=== PATIENT | female | born 1995 | race Caucasian/White ===

== ENCOUNTER 2017-03-19 20:33 | Emergency (ER) | payer SELFPAY ==
[~2017-03-19] VITALS: Ht 170.2 cm; Wt 72.6 kg
--- NOTE | 2017-03-19 22:10 | PHYS DOC ---
Past Medical History Past Medical History: No Pertinent History Past Surgical History: No Surgical History Alcohol Use: None Drug Use: None Adult General Chief Complaint Chief Complaint: NAUSEA/VOMITING/DIARRHA HPI HPI Patient is a 21 year old F who presents with nausea/vomiting/diarrhea. Patient states that around 5 PM this evening she started having diffuse abdominal tenderness with persistent nausea and vomiting. Patient states she can keep anything down. Patient developed diarrheas night progressed. Patient denies any fevers. Mom brought her in because she was looking weak and miserable. Patient had no previous abdominal surgeries. She denies . Patient no other complaints. Review of Systems Review of Systems GEN: Denies fevers, chills, sweats HEENT: Denies blurred vision, sore throat CV: Denies chest pain RESP: Denies shortness of air, cough GI: n/v/d diffuse abdominal tenderness NEURO: Denies confusion, dizziness MSK: Denies weakness, joint pain/swelling Current Medications Current Medications Current Medications Medications (Trade) Dose Ordered Sig/Gail Start Time Stop Time Status Last Admin Dose Admin Info (Do NOT chart on this entry -- for MONITORING) 1 each PRN DAILY PRN 03/19/17 23:00 03/21/17 22:59 Iohexol (Omnipaque 300 Mg/ml) 75 ml 1X ONCE 03/19/17 23:00 03/19/17 23:01 DC 03/19/17 23:52 75 ML Ondansetron HCl (Zofran) 4 mg 1X ONCE 03/19/17 22:45 03/19/17 22:47 DC 03/19/17 22:54 4 MG Potassium Chloride (Klor-Con) 40 meq 1X ONCE 03/20/17 01:00 03/20/17 01:01 DC 03/20/17 01:00 40 MEQ Sodium Chloride 1,000 ml @ 1,000 mls/hr 1X ONCE 03/20/17 01:00 03/20/17 01:59 03/20/17 01:00 1,000 MLS/HR Allergies Allergies Allergies Coded Allergies Type Severity Reaction Last Updated Verified No Known Drug Allergies 03/19/17 No Physical Exam Physical Exam GEN.: mild distress. Alert and oriented. HEENT: Head is normocephalic, atraumatic NECK: Supple. LUNGS: CTAB. HEART: RRR, S1, S2 present. Peripheral pulses intact ABDOMEN: Soft, diffuse abdominal tenderness, no rebound tenderness, no abdominal distention. Positive bowel sounds. EXTREMITIES: Without any cyanosis. NEUROLOGIC: Normal speech, normal tone PSYCHIATRIC: Normal affect, normal mood. SKIN: No ulcerations Current Patient Data Vital Signs Vital Signs Date Time Temp Pulse Resp B/P (MAP) Pulse Ox O2 Delivery O2 Flow Rate FiO2 03/19/17 21:25 97.7 80 16 171/88 (115) 99 Room Air 97.7 Lab Values Laboratory Tests Test 03/19/17 21:00 03/19/17 21:55 03/19/17 22:00 POC Urine HCG, Qualitative Hcg negative (Negative) Sodium Level 141 mmol/L (136-145) Potassium Level 2.9 mmol/L (3.5-5.1) *L Chloride Level 104 mmol/L (98-107) Carbon Dioxide Level 20 mmol/L (21-32) L Anion Gap 17 (6-14) H Blood Urea Nitrogen 15 mg/dL (7-20) Creatinine 1.0 mg/dL (0.6-1.0) Estimated GFR (Cockcroft-Gault) 71.4 BUN/Creatinine Ratio 15 (6-20) Glucose Level 158 mg/dL (70-99) H Calcium Level 9.6 mg/dL (8.5-10.1) Total Bilirubin 0.5 mg/dL (0.2-1.0) Aspartate Amino Transferase (AST) 16 U/L (15-37) Alanine Aminotransferase (ALT) 18 U/L (14-59) Alkaline Phosphatase 57 U/L (46-116) Total Protein 7.9 g/dL (6.4-8.2) Albumin 4.1 g/dL (3.4-5.0) Albumin/Globulin Ratio 1.1 (1.0-1.7) White Blood Count 12.2 x10^3/uL (4.0-11.0) H Red Blood Count 4.66 x10^6/uL (3.50-5.40) Hemoglobin 14.4 g/dL (12.0-15.5) Hematocrit 42.7 % (36.0-47.0) Mean Corpuscular Volume 92 fL (79-100) Mean Corpuscular Hemoglobin 31 pg (25-35) Mean Corpuscular Hemoglobin Concent 34 g/dL (31-37) Red Cell Distribution Width 12.5 % (11.5-14.5) Platelet Count 234 x10^3/uL (140-400) Neutrophils (%) (Auto) 88 % (31-73) H Lymphocytes (%) (Auto) 5 % (24-48) L Monocytes (%) (Auto) 7 % (0-9) Eosinophils (%) (Auto) 0 % (0-3) Basophils (%) (Auto) 0 % (0-3) Neutrophils # (Auto) 10.8 x10^3uL (1.8-7.7) H Lymphocytes # (Auto) 0.5 x10^3/uL (1.0-4.8) L Monocytes # (Auto) 0.8 x10^3/uL (0.0-1.1) Eosinophils # (Auto) 0.0 x10^3/uL (0.0-0.7) Basophils # (Auto) 0.0 x10^3/uL (0.0-0.2) Segmented Neutrophils % 86 % (35-66) H Band Neutrophils % 5 % (0-9) Lymphocytes % 4 % (24-48) L Monocytes % 5 % (0-10) Platelet Estimate Adequate (ADEQUATE) Urine Collection Type Unknown Urine Color Yellow Urine Clarity Clear Urine pH 7.5 Urine Specific [place] 1.010 Urine Protein Negative mg/dL (NEG-TRACE) Urine Glucose (UA) Negative mg/dL (NEG) Urine Ketones (Stick) >=80 mg/dL (NEG) Urine Blood Negative (NEG) Urine Nitrite Negative (NEG) Urine Bilirubin Negative (NEG) Urine Urobilinogen Dipstick 0.2 mg/dL (0.2 mg/dL) Urine Leukocyte Esterase Negative (NEG) Urine RBC 0 /HPF (0-2) Urine WBC 1-4 /HPF (0-4) Urine Squamous Epithelial Cells Few /LPF Urine Renal Epithelial Cells Occ /LPF Urine Bacteria 0 /HPF (0-FEW) Urine Mucus Slight /LPF Urine Opiates Screen Neg (NEG) Urine Methadone Screen Neg (NEG) Urine Barbiturates Neg (NEG) Urine Phencyclidine Screen Neg (NEG) Urine Amphetamine/Methamphetamine Neg (NEG) Urine Benzodiazepines Screen Neg (NEG) Urine Cocaine Screen Neg (NEG) Urine Cannabinoids Screen Pos (NEG) Ethyl Alcohol Level < 10 mg/dL (0-10) Urine Ethyl Alcohol Neg (NEG) Laboratory Tests 03/19/17 22:00 Laboratory Tests 03/19/17 21:55 EKG EKG 0133: EKG shows normal sinus rhythm rate of 65 no STEMI[] Radiology/Procedures Radiology/Procedures CT scan abdomen and pelvis: 1. No evidence of appendicitis, hydronephrosis or bowel obstruction. 2. Mild nonspecific haziness of pelvic fat. This is of unknown etiology and is a very subtle finding which could be from nonspecific edema but would correlate for other causes such as infection/inflammation to the region.[] Course & Med Decision Making Course & Med Decision Making Pertinent Labs and Imaging studies reviewed. (See chart for details) ED course: Patient was seen and examined emergency room abdominal workup was ordered along with a CT scan abdomen pelvis 0100: Patient was reevaluated in which she was still having nausea and some abdominal pain and stated that answer crawl over her 0122: Patient admits after the urine drug screen to smoking marijuana, parents were consulted and patient home we'll send the patient home with nausea vomiting and and potassium and recommended to mom to have her potassium rechecked on Wednesday by her PCP, parents were comfortable taking her home. MDM: After reviewing the chart, CC/HPI/PMH, physical exam, [lab results], [ radiological results], I do not believe the patient has emergent medical condition warranting further workup and/or admission at this time. I believe the patient's symptoms are most likely related to her marijuana use and her hypokalemia is related to her nausea and vomiting. I believe the patient is stable for discharge. Parents are comfortable taking the patient home. Additional verbal discharge instructions were provided to the patient and that if symptoms get worse or any new symptoms arise that are worrisome to the patient she is to return to the emergency room immediately [] Dragon Disclaimer Dragon Disclaimer This electronic medical record was generated, in whole or in part, using a voice recognition dictation system. Departure Departure Impression: Primary Impression: Nausea and vomiting Additional Impressions: Hypokalemia Abdominal pain Cannabis abuse Disposition: HOME, SELF-CARE Condition: IMPROVED Referrals: NO PCP (PCP) Patient Instructions: Abdominal Pain (Nonspecific), Marijuana Abuse-Brief, Nausea and Vomiting, [id number] Additional Instructions: Please follow up with your family doctor in the next one to 2 days and return if symptoms increase Scripts Potassium Chloride (POTASSIUM CHLORIDE) 20 Meq Tablet.er 20 MEQ PO DAILY for 5 Days, #5 TAB.SR Prov: VIKAS DIAZ DO 03/20/17 Ondansetron (ZOFRAN ODT) 4 Mg Tab.rapdis 1 TAB SL Q8HRS, #10 TAB Prov: VIKAS DIAZ DO 03/20/17 Problem Qualifiers VIKAS DIAZ DO Mar 19, 2017 22:10
[2017-03-19 22:15] LABS: BASO % 0 % (0-3); EOS % 0 % (0-3); HEMATOCRIT 42.7 % (36.0-47.0); HEMOGLOBIN 14.4 g/dL (12.0-15.5); LYMPH # 0.5 x10^3/uL (1.0-4.8); LYMPH % 5 % (24-48); MEAN CORPUSCULAR HEMOGLOBIN 31 pg (25-35); MEAN CORPUSCULAR HGB CONC 34 g/dL (31-37); MEAN CORPUSCULAR VOLUME 92 fL (79-100); MONO % 7 % (0-9); NEUT % 88 % (31-73); PLATELET COUNT 234 x10^3/uL (140-400); RED BLOOD COUNT 4.66 x10^6/uL (3.50-5.40); RED CELL DISTRIBUTION WIDTH 12.5 % (11.5-14.5); WHITE BLOOD COUNT 12.2 x10^3/uL (4.0-11.0)
[2017-03-19 22:16] LABS: BILIRUBIN,URINE NEGATIVE (NEG); GLUCOSE,URINE NEGATIVE (NEG); NITRITE,URINE NEGATIVE (NEG); PH,URINE 7.5; PROTEIN,URINE NEGATIVE (NEG-TRACE); UROBILINOGEN,URINE 0.2 mg/dL (0.2 mg/dL)
[2017-03-19 22:37] LABS: ALBUMIN 4.1 g/dL (3.4-5.0); ALBUMIN/GLOBULIN RATIO 1.1 (1.0-1.7); CALCIUM 9.6 mg/dL (8.5-10.1); GFR 71.4; TOTAL BILIRUBIN 0.5 mg/dL (0.2-1.0); TOTAL PROTEIN 7.9 g/dL (6.4-8.2)
[2017-03-19 22:40] LABS: BACTERIA,URINE 0 /HPF (0-FEW); RBC,URINE 0 /HPF (0-2); SQUAMOUS EPITHELIAL CELL,UR FEW /LPF
[2017-03-19 22:41] LABS: POTASSIUM 2.9 mmol/L (3.5-5.1)
[2017-03-19 22:42] LABS: PLT ESTIMATE ADEQUATE (ADEQUATE)
[2017-03-19] MEDS ORDERED: IV NORMAL SALINE 1000ML BAG 1,000 ML IV ONE (22:45)
[2017-03-19] MEDS ORDERED: ONDANSETRON PF 4 MG/2 ML VIAL. IV ONE (22:45)
[2017-03-19] MEDS ORDERED: CONTRAST GIVEN MC PRN (23:00)
[2017-03-19] MEDS ORDERED: IOHEXOL 300 MG/ML 75 ML VIAL IV ONE (23:00)
--- NOTE | 2017-03-20 00:31 | RAD ---
INDICATION: DIFFUSE ABD PAIN WITH N/V SINCE 170 NO SURGERIES NO PREV INJ 75ML OMNI 300 COMPARISON: None. TECHNIQUE: Axial CT images were obtained through the abdomen and pelvis with intravenous contrast. One or more of the following individualized dose reduction techniques were utilized for this examination: 1. Automated exposure control; 2. Adjustment of the mA and/or kV according to patient size; 3. Use of iterative reconstruction technique. FINDINGS: Chest Base: Partially imaged without gross abnormality. Vessels: No abdominal aortic aneurysm. Liver/Biliary: Low-attenuation of parenchyma adjacent to falciform ligament, typically secondary to focal fatty infiltration. Pancreas: No peripancreatic edema. Spleen: Normal. Kidneys/Adrenal: No hydronephrosis. Bladder: No definite adjacent inflammation. GI: No free air. No bowel dilation to suggest obstruction. The appendix is not dilated. IMPRESSION: 1. No evidence of appendicitis, hydronephrosis or bowel obstruction. 2. Mild nonspecific haziness of pelvic fat. This is of unknown etiology and is a very subtle finding which could be from nonspecific edema but would correlate for other causes such as infection/inflammation to the region. Electronically signed by: Jose Cooper MD (03/20/2017 12:27 AM) [id number]
[2017-03-20 00:57] LABS: BARBITURATES NEG (NEG); BENZODIAZEPINES NEG (NEG); CANNABINOIDS POS (NEG); COCAINE NEG (NEG); METHADONE NEG (NEG); OPIATES NEG (NEG); PHENCYCLIDINE NEG (NEG)
[2017-03-20] MEDS ORDERED: IV NORMAL SALINE 1000ML BAG 1,000 ML IV ONE (01:00)
[2017-03-20] MEDS ORDERED: POTASSIUM CHLORIDE 20 MEQ TABLET.ER. PO ONE (01:00)
[2017-03-20] MEDS ORDERED: POTA20TA82 PO (01:29)
[2017-03-20] MEDS ORDERED: ONDA4TAB10 SL (01:29)
[2017-03-20 01:32] VITALS: BP 154/74
--- NOTE | 2017-03-20 10:47 | EKG ---
[facility] [address] [place] [address] Test Date: 2017-03-20 Test Time: 01:24:11 Pat Name: JAZMIN MARROQUIN Department: Room: Gender: F Freezer Operator: : 1995 Requested By: VIKAS DIAZ Order Number: [id number] Reading MD: Tina Bella Measurements Intervals [place] Rate: 65 P: 67 NH: 118 QRS: 72 QRSD: 82 T: 39 QT: 418 QTc: 435 Interpretive Statements SINUS RHYTHM INCOMPLETE RIGHT BUNDLE BRANCH BLOCK Electronically Signed On 03-21-2017 12:56:30 CDT by Tina Bella
== END 2017-03-20 01:32 | disposition home or self-care (01) ==
LOC: ER 20:33
DX: R11.2 Nausea with vomiting, unspecified (principal); R19.7 Diarrhea, unspecified; E87.6 Hypokalemia; F12.10 Cannabis abuse, uncomplicated; R10.84 Generalized abdominal pain
CPT/HCPCS: 36415; 74177; 80053; 80307; 81001; 81025; 85007; 85025; 93005; 96361; 96374; 99285; G0480; J2405; J7030; Q9967; G0479